=== PATIENT | male | born 1965 ===

== ENCOUNTER 2017-06-23 08:06 | Outpatient (CLI) | payer OTHER | END 2017-06-23 10:45 | disposition home or self-care (01) | LOC: SONOGRAMA 08:06 | DX: M75.82 Other shoulder lesions, left shoulder (principal); M75.81 Other shoulder lesions, right shoulder ==

== ENCOUNTER 2017-06-23 08:12 | Outpatient (CLI) | payer OTHER | END 2017-06-23 10:48 | disposition home or self-care (01) | LOC: RAD 08:12 | DX: M15.8 Other polyosteoarthritis (principal); M75.82 Other shoulder lesions, left shoulder; M75.81 Other shoulder lesions, right shoulder ==

== ENCOUNTER 2017-06-25 09:04 | Outpatient (CLI) | payer OTHER | END 2017-06-25 09:21 | disposition home or self-care (01) | LOC: NUCLEAR 09:04 | DX: M46.1 Sacroiliitis, not elsewhere classified (principal) | CPT/HCPCS: 78315; 78306; A9503 ==